=== PATIENT | female | born 1970 | race African-American/Black ===

== ENCOUNTER 2022-01-04 09:17 | Outpatient (CLI) | payer BC | END 2022-01-04 09:18 | disposition home or self-care (01) | LOC: BICMAMMO 09:17 | PROVIDERS: ATTEND Family Medicine | DX: Z12.31 Encounter for screening mammogram for malignant neoplasm of breast (principal); R92.1 Mammographic calcification found on diagnostic imaging of breast; Z80.3 Family history of malignant neoplasm of breast | CPT/HCPCS: 77066; G0279 ==